=== PATIENT | male | born 1950 | race Caucasian/White ===

== ENCOUNTER 2017-04-01 22:14 | Emergency (ER) | payer OTHER ==
--- NOTE | 2017-04-01 23:06 | DIAGNOSTIC IMAGING REPORT ---
PROCEDURE: CT HEAD WITHOUT CONTRAST INDICATION: DIZZINESS TECHNIQUE: Noncontrast axial images with sagittal and coronal reformations. COMPARISON: None. FINDINGS: Sulci and ventricular system are normal. Minor white matter chronic ischemic changes. No evidence of acute intracranial process. Visualized mastoids and sinuses are clear. IMPRESSION: 1. No acute intracranial abnormality 2. Minor white matter chronic ischemic changes 3. Findings discussed with Dr. Alvarado at 11:05 p.m., [place] Standard Time
--- NOTE | 2017-04-01 23:57 | ED CLINICAL REPORT ---
Clinical Report - Physicians/Mid Levels [facility] [address] [place] [address] 04/01/2017 22:16 Patient: KEENAN BATES Time Seen: 22:30. Arrived- By private vehicle. Historian- patient and spouse. HISTORY OF PRESENT ILLNESS Chief Complaint: Dizzy spell. It is gone now. This started about 1 hour ago and is now gone. It was abrupt in onset and has been intermittent. Onset during moderate exertion. No neck pain. Not located in the facial region. At its maximum, severity described as moderate. When seen in the E.D., it was gone. Modifying factors: relieved by nothing. Not worsened by anything. No blurred vision, photophobia, associated nausea, numbness or weakness. No vomiting. 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 Similar symptoms previously: (several years ago). ( Had work up at his PCP's office - reportedly negative). Recent medical care: Not recently seen/assessed. REVIEW OF SYSTEMS No fever, sinus pressure, ear pain, sore throat or chest pain. No difficulty breathing, cough, abdominal pain, pain with urination or skin rash. No back pain or headache. All systems otherwise negative, except as recorded above. PAST HISTORY PCP: [facility]. Hypertension. Medications: Lisinopril Oral 40 mg, daily as needed. Allergies: No Known Drug Allergy. SOCIAL HISTORY Smoker- current status unknown. Occasional alcohol use. No drug use. Residence: [place]. ADDITIONAL NOTES The nursing notes have been reviewed. PHYSICAL EXAM Vital Signs: 04/01/2017 22:29 BP: 181/91. HR: 60. RR: 18. O2 saturation: 100%. Temp: 98.1 F. Pain level now: 0/10. Appearance: Alert. No acute distress. Head: No temporal artery tenderness. Eyes: Pupils equal, round and reactive to light. Eyes normal inspection. ENT: Nose normal. Pharynx normal. No pharyngeal erythema or tonsillar exudate. Neck: Normal inspection. Neck supple. No meningeal signs or carotid bruit. CVS: Bradycardia (ventricular rate = 55). Heart sounds normal. Pulses normal. Respiratory: No respiratory distress. Breath sounds normal. Abdomen: Soft and nontender. Back: Normal inspection. Skin: Skin warm and dry. Normal skin color. No rash. Normal skin turgor. Extremities: Extremities exhibit normal ROM. No calf tenderness. No lower extremity edema. Neuro: Oriented X 3. Alert. Mood/affect normal. Speech normal. Cranial nerves normal (as tested). No cerebellar findings. No motor deficit. No sensory deficit. Reflexes normal. Reflex exam: right biceps 2+, left biceps 2+, right patellar 2+, left patellar 2+, right Achilles 1+ and left Achilles 1+. LABS, X-RAYS, AND EKG EKG: EKG time: (22:43). Normal sinus rhythm. Rate: 60. Normal P waves. Normal PEARL. Normal QRS complex. Normal axis. Normal ST and T waves. The study has been interpreted contemporaneously by me. The EKG appears to be a good tracing. Rhythm Strip #1: Normal sinus rhythm. Regular rhythm. Narrow QRS complexes. No ectopy. CT Head: Normal study. No acute changes. No bony abnormalities, no hemorrhage, no intracranial mass, no midline shift and no hydrocephalus. Head CT performed without contrast. The study was independently viewed by me, interpreted by the radiologist and discussed with the radiologist. Duplex Ultrasound: Right and left carotid study. (5-15% bilateral stenosis - not hemodynamically significant). The exam was performed by a semiconductor lab technician. The study was independently viewed by me and interpreted by the radiologist. The study was discussed with the radiologist (via [employer]). Laboratory Tests: UA-Culture if indicated: (ARNOL: 04/01/2017 23:50) ( MsgRcvd 04/02/2017 00:18) Final results Test Result Flag Units (Reference) URINE COLOR YELLOW URINE APPEARANCE CLEAR URINE GLUCOSE NEGATIVE (NEGATIVE) URINE BILIRUBIN NEGATIVE (NEGATIVE) URINE KETONE NEGATIVE (NEGATIVE) URINE SPECIFIC GRAVITY <= 1.005 L (1.010-1.030) URINE PH 6.0 (5.0-8.0) URINE PROTEIN NEGATIVE (NEGATIVE) URINE UROBILINOGEN 0.2 EU/dL (0.2-1.0) URINE NITRITE NEGATIVE (NEGATIVE) URINE BLOOD NEGATIVE (NEGATIVE) URINE LEUK ESTERASE NEGATIVE (NEGATIVE) URINE RBC RARE rbc/hpf (0-1) URINE WBC NONE SEEN wbc/hpf (0-1) URINE EPITHELIAL CELLS NONE SEEN EPI/hpf (0-5) URINE BACTERIA NONE SEEN (NONE SEEN) URINE COMMENT CULT NOT INDICATED URINE CULTURES ARE SET-UP BASED ON THE FOLLOWING CRITERIA:POSITIVE NITRITEPOSITIVE LEUKOCYTE ESTERASEGREATER THAN 10 WHITE BLOOD CELLSMODERATE (2+) OR GREATER BACTERIA CBC w Diff: (ARNOL: 04/01/2017 22:40) ( [facility] 04/01/2017 22:57) Final results Test Result Flag Units (Reference) WHITE BLOOD COUNT 4.9 K/uL (4.5-11.5) RED BLOOD COUNT 4.43 L M/uL (4.50-5.90) HEMOGLOBIN 13.2 L gm/dL (13.5-17.5) HEMATOCRIT 39.4 L % (41.0-53.0) MEAN CELL VOLUME 89 fL (80-100) MEAN CORPUSCULAR HGB 30 pg (26-34) MEAN CORPUSCULAR HGB CONC 34 g/dL (31-37) RED CELL DISTRIBUTION WIDTH 13.1 % (11.6-14.8) PLATELET COUNT 196 K/uL (150-400) LYMPH % 32.9 % (25-40) MONO % 5.1 % (3-14) GRANULOCYTE % 62.0 PT with INR: (ARNOL: 04/01/2017 22:40) ( [facility] 04/01/2017 23:10) Final results Test Result Flag Units (Reference) INR 0.9 (0.8-1.2) Low Intensity Therapy: INR 1.5-2.0 PT range 18.5-23.1Mod.Intensity Therapy: INR 2.0-3.0 PT range 23.1-31.5High Intensity Therapy: INR 2.5-3.5 PT range 27.4-35.5High Intensity Therapy 2: INR 3.0-4.0 PT range 31.5-39.3 D-DIMER QUANTITATIVE 0.30 ug/mLFEU (0.27-0.52) The primary value of this quantitative assay relates toits negative predictive value (i.e. exclusion) of pulmonaryembolism/deep vein thrombosis/DIC.Elevated levels of d-dimer may also occur with:, age, cancer, inflammation, liver disease,post-op, infection, hematoma, coronary disease, peripheralarteriopathy, bleeding disorders and thrombolytic treatment.Results should be correlated with other clinical andradiological data.Testing Methodology: Latex Immunoassay Urine Drug Screen: (ARNOL: 04/01/2017 23:50) ( [facility] 04/02/2017 00:19) Final results Test Result Flag Units (Reference) AMPHETAMINE/METHAMPHETAMINE NEGATIVE (NEGATIVE) BARBITURATE NEGATIVE (NEGATIVE) BENZODIAZEPINE NEGATIVE (NEGATIVE) CANNABINOID NEGATIVE (NEGATIVE) COCAINE NEGATIVE (NEGATIVE) ECSTASY NEGATIVE (NEGATIVE) METHADONE NEGATIVE (NEGATIVE) OPIATE NEGATIVE (NEGATIVE) The urine drug screen is a qualitative screening test fordrug overdose and abuse. All screen results should beconsidered as presumptive.Drugs screened for are as follows:BenzodiazepinesCocaineAmphetamines/MetamphetaminesTHC (Tetrahydrocannabinol)OpiatesBarbituratesEcstasyMethadonePositive results are unconfirmed. For confirmation, notifythe lab for the specimen to be sent to the reference lab.All confirmations must be performed by a differentmethodology.The ingestion of natural herbal and plant productscontaining Ephedra/Ephedra metabolites can produce in urineone or more substances capable of cross reacting withamphetamine/methamphetamine immunoassays. These testsprovide a preliminary result only. A more specificalternative chemical method must be used to obtain aconfirmed analytical result. BNP: (ARNOL: 04/01/2017 22:40) ( [facility]12) Final results Test Result Flag Units (Reference) B-TYPE NATRIURETIC PEPTIDE 57.5 pg/ml (5-100) Amylase: (ARNOL: 04/01/2017 22:40) ( [facility] 04/01/2017 23:28) Final results Test Result Flag Units (Reference) AMYLASE 37 U/L (25-115) THYROID STIMULATING HORMONE 1.801 uIU/mL (0.30-3.74) CHEM 13 PANEL: (ARNOL: 04/01/2017 22:40) ( MsgRcvd 04/01/2017 23:17) Final results Test Result Flag Units (Reference) GLUCOSE 81 mg/dL (70-110) BUN 11 mg/dL (7-18) CREATININE 0.9 mg/dL (0.6-1.3) Estimated GFR >60 mL/min Estimated GFR- >60 mL/min Note: Persistent reduction over 3 months in eGFR<60 mL/min/1.73 m2 defines CKD. Patients with eGFR values>=60 mL/min/1.73 m2 may also have CKD if evidence ofpersistent proteinuria. Additional information may be foundat www.kidney.org. SODIUM 141 mmol/L (136-145) POTASSIUM 3.5 mmol/L (3.5-5.1) CHLORIDE 107 mmol/L (98-107) CARBON DIOXIDE 32 mmol/L (21-32) CALCIUM 8.7 mg/dL (8.5-10.1) TOTAL PROTEIN 6.4 g/dL (6.4-8.2) ALBUMIN 3.6 g/dL (3.3-5.0) BILIRUBIN, TOTAL 0.3 mg/dL (0.0-1.0) ALKALINE PHOSPHATASE 85 U/L (46-116) AST (SGOT) 19 U/L (15-37) ALT (SGPT) 30 U/L (12-78) CPK 123 U/L (24-260) MAGNESIUM 1.8 mg/dL (1.8-2.4) TROPONIN I <0.05 ng/mL (0.00-1.5) TROPONIN REFERENCE RANGE:<0.1 NEGATIVE0.1-1.5 INDETERMINANT>1.5 POSITIVE . Pulse Oximetry: 04/01/2017 22:29 O2 saturation: 100%. (FIO2 - room air). Interpretation: normal. PROGRESS AND PROCEDURES Course of Care: Normal Saline 1 liter IVPB given. [place] bradycardia and taking antihypertensives - had slept and then quickly began working / moving around his truck. May have mild dehydration and orthostatic hypotension (transient). No signs of dysrhythmia or ACS or intracranial pathology. Patient/family counseled. Disposition: Discharged. Condition: stable and improved. CLINICAL IMPRESSION Near syncope .12 lead EKG performed. Mild anemia. INSTRUCTIONS No driving for 3. ( Please do not drive if you have any symptoms of lightheadedness). Rest. Do not work for three days. Drink plenty of fluids. Warnings: Further evaluation is necessary. It is very important to follow up with a physician. GENERAL WARNINGS: Return or contact your physician immediately if your condition worsens or changes unexpectedly, if not improving as expected, or if other problems arise. Your Current Medications: CONTINUE TAKING THE FOLLOWING MEDICATIONS: Lisinopril Oral : 40 mg daily, prn. OTC Medications: Take aspirin according to label instructions. Available over the counter. (daily dose = 325 mg) Follow-up: Follow up with your doctor tomorrow. (Electronically signed by Brenden Alvarado DO 04/02/2017 2:22)
--- NOTE | 2017-04-01 23:57 | ED ORDER SUMMARY ---
..... Patient: KEENAN BATES OrderSheet [facility] VisitID: [id number] [place] [address] 66y, M Registration Date/Time: 04/01/2017 ORDER SHEET Weight: 83.9 kg (stated) Allergies: No Known Drug Allergy GENERAL ORDERS: CT Head wo Cont Urgent (22:42 04/01/2017 PHutchinson DO) (Ack 22:47 AMcQuoid ER Tech1) (23:01 Josh) Shell Trim Operator (Continuous) (22:42 04/01/2017 PHutchinson DO) (22:45 HSoule) (Ack 22:47 AMcQuoid ER Tech1) US Carotid Doppler Bilat Urgent (22:43 04/01/2017 PHutchinson DO) (Ack 22:47 AMcQuoid ER Tech1) (23:35 RFay) UA-Culture if indicated Urgent (22:43 04/01/2017 PHutchinson DO) (Ack 22:47 AMcQuoid ER Tech1) (0:01 Alta R.N.) Cardiac Panel Stat (22:43 04/01/2017 PHutchinson DO) (Ack 22:47 AMcQuoid ER Tech1) (22:52 ALawrence ER Tech1) BNP Urgent (22:43 04/01/2017 PHutchinson DO) (Ack 22:47 AMcQuoid ER Tech1) (22:52 ALawrence ER Tech1) D-Dimer Urgent (22:43 04/01/2017 PHutchinson DO) (Ack 22:47 AMcQuoid ER Tech1) (22:52 ALawrence ER Tech1) Amylase Urgent (22:43 04/01/2017 PHutchinson DO) (Ack 22:47 AMcQuoid ER Tech1) (22:52 ALawrence ER Tech1) PT with INR Urgent (22:43 04/01/2017 PHutchinson DO) (Ack 22:47 AMcQuoid ER Tech1) (22:52 ALawrence ER Tech1) TSH Urgent (22:43 04/01/2017 PHutchinson DO) (Ack 22:47 AMcQuoid ER Tech1) (22:52 ALawrence ER Tech1) Urine Drug Screen Urgent (22:43 04/01/2017 [facility]) (Ack 22:47 AMcQuoid ER Tech1) (0:01 KPage-Kuchan R.N.) Pulse oximeter (22:43 04/01/2017 [facility]) (22:45 HSoule) (Ack 22:47 AMcQuoid ER Tech1) EKG - ER Stat (22:43 04/01/2017 [facility]) (22:45 HSoule) (Ack 22:47 AMcQuoid ER Tech1) Vitals (22:43 04/01/2017 [facility]) (22:45 HSoule) (Ack 22:47 AMcQuoid ER Tech1) MEDICATION ORDERS: IV FLUIDS: IV NS : initial bolus 1000 mL (1000 mL/hr), then 250 mL/hr for X4 (NOW) (22:42 04/01/2017 [facility]) (Ack 22:45 HSoule) (0:01 KPage-Kuchan R.N.) Zofran IV 4 mg (NOW) (22:43 04/01/2017 [facility]) (Ack 22:45 HSoule) (0:01 KPage-Kuchan R.N.) ORDER SHEET NOTES: [Electronically signed by Brenden Alvarado DO (02:22 04/02/2017)] [Electronically signed by Ewa Ga R.N. (20:40 04/02/2017)] [Electronically locked/signed by Ewa Ga R.N. (20:40 04/02/2017)]
--- NOTE | 2017-04-01 23:57 | ED NURSING NOTES ---
Clinical Report - Nurses [facility] [address] [place] [address] 04/01/2017 22:16 Patient: KEENAN BATES TRIAGE Triage time 22:30 Apr 01 2017. Acuity: LEVEL 3. Chief Complaint: DIZZINESS. ( FAST exam negative). SEPSIS SCREEN: Sepsis Screen: negative. Negative (no infection suspected/documented). CASA COMA SCORE: Casa Coma Scale: 15- eyes open spontaneously (4); best verbal response- oriented x 4 (5); best motor response- obeys commands (6). --22:35 Yesi Blackburn 22:29 04/01/17. BP: 181/91. HR: 60. RR: 18. O2 saturation: 100%. Temp: 98.1 F (oral). Pain level now: 0/10. --22:35 Yesi Blackburn. Weight: 83.9 kg stated. Height/Length: 72 inches Per Patient. BMI: 25.1. --22:32 Yesi Blackburn. Medications Lisinopril Oral 40 mg, daily as needed. --22:31 Yesi Blackburn. Medication/allergy information source: the patient. --22:35 Yesi Blackburn. Allergies No Known Drug Allergy. --22:32 Yesi Blackburn. History Arrived by private vehicle. Historian: patient. Accompanied by family. This started just prior to arrival. 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 He reports he was getting into his truck when he was suddenly "dizzy". He reports it was almost as if he would pass out. He reports the "dizzy" spell was on his right side. He reports he feels "weird". He reports the onset about 45 min ago.). PAST MEDICAL HX: Immunizations: up-to-date. SOCIAL HX: Heavy tobacco smoker (cigarette)- 1 pack per day. Occasional alcohol use. No drug use. No infectious disease exposure. ABUSE ASSESSMENT: No report of abuse. FALL RISK ASSESSMENT: Fall risk assessment completed. No fall risk identified. NUTRITIONAL RISK ASSESSMENT: The nutritional risk assessment revealed no deficiencies. FUNCTIONAL ASSESSMENT: Functional assessment: no impairments noted. LEARNING NEEDS ASSESSMENT: The learning needs assessment revealed no barriers. SKIN INTEGRITY ASSESSMENT: Skin integrity risk assessment completed. No skin integrity risk identified. --22:35 Yesi Blackburn. PROBLEMS: Hypertension. --22:32 Yesi Blackburn. ADDITIONAL SURGERIES: Right knee . --22:32 Yesi Blackburn. Interventions ID band on patient. To treatment room. --22:35 Yesi Blackburn. PHYSICAL ASSESSMENT Ambulatory to room. Patient gowned. GENERAL / NEURO / PSYCH: Alert. Oriented X 4. Appears in no acute distress. HEENT: No facial asymmetry noted. Mucous membranes are pink. RESPIRATORY: Respirations not labored. CVS: Normal sinus rhythm noted. GI / : Abdomen soft and nontender. SKIN: Skin is warm and dry. --22:36 Yesi Blackburn. NURSING PROGRESS NOTES wildlife conservation officer, pulse oximeter and NIBP monitor placed on patient; monitor alarms on. Patient gowned. Reassurance given to the patient. Two patient identifiers checked. Call light placed in reach. Side rails up x 1. Bed placed in lowest position. Brakes of bed on. Patient ready for evaluation- chart flagged and ED physician notified. --22:36 Yesi Blackburn EKG time: (22:42 Apr 01 2017). EKG was performed by a nurse and shown to the ED physician. --22:45 Yesi Blackburn 22:45 04/01/2017 Site #1 started via IV in the left antecubital space with an 20g angiocath, with aseptic technique and good blood return; one attempt. Blood drawn: rainbow set. Labeled in the presence of the patient and sent to the lab. Saline lock flushed with 10 mL saline. --22:45 Yesi Blackburn Patient transported to CT by stretcher with tech. (22:53 Apr 01 2017). --22:53 Yesi Blackburn Telemetry strip posted to chart. --22:55 McQuoid, Verna, ER Tech1 23:46 04/01/2017 Started bag #1 1000 mL IV Fluids IV NS (Saline); at 1000 mL/hr via site #1. Allergies verified and confirmed 5 rights. IV patency established. IV site checked: no pain, redness, or swelling. IV flushed thoroughly pre- and post-medication administration. --00:01 Ewa Ga R.N. 23:46 04/01/2017 Zofran (Ondansetron HCl) IVP 4 mg given. via site #1. Allergies verified and confirmed 5 rights. IV patency established. IV site checked: no pain, redness, or swelling. IV flushed thoroughly pre- and post-medication administration. IVP given by RN. --00:01 Ewa Ga R.N. Patient ID band checked for patient name: patient confirmed urine collected with return of yellow-colored urine; sample sent to lab for urinalysis. Specimen labeled in the presence of the patient. --00:02 Ewa Ga R.N. Patient waiting for lab results. --00:02 Ewa Ga R.N. 00:04 04/02/17. BP: 133/80. HR: 47. RR: 17. Pain level now: 0/10. --00:04 Ewa Ga R.N. 00:04 04/02/17. BP: 133/80. HR: 47. RR: 17. Pain level now: 0/10. 23:34 04/01/17. BP: 147/68. HR: 56. RR: 17. O2 saturation: 100%. Pain level now: 0/10. 22:29 04/01/17. BP: 181/91. HR: 60. RR: 18. O2 saturation: 100%. Temp: 98.1 F (oral). Pain level now: 0/10. --00:08 Ewa Ga R.N. ( MD notified pts hr on monitor will go down to 47-49, SB, pt while speaking with him and watching the monitor denies being dizzy, sob or any/all pain). --00:08 Ewa Ga R.N. 00:47 04/02/2017 IV Fluids IV NS Discontinued: bag #1. Total amount infused: 1000 mL. IV patency established. IV site checked: no pain, redness, or swelling. IV flushed thoroughly. --00:57 Ewa Ga R.N. 00:47 04/02/2017 Zofran IVP Response: no adverse reaction symptoms have improved the patient feels better. --00:57 Ewa Ga R.N. DISPOSITION / DISCHARGE 00:57 04/02/2017 Site #1 removed upon discharge. Bandaid applied. --00:57 Ewa Ga R.N. No learning barriers present. Discharge instructions provided and reviewed with the patient and spouse. Activity restrictions reviewed (note given per MD). Work note given. Patient and spouse verbalized understanding. Written instructions provided in Chinese. The patient was discharged by the physician. He was discharged home and accompanied by spouse. He left the Emergency Department ambulatory and via private vehicle. Spouse driving. ( pt given rx and f/u, pt enc to drink fluids and f/u as directed). --01:13 Ewa Ga R.N. 00:57 04/02/17. BP: 134/74. HR: 61. RR: 15. O2 saturation: 100%. Temp: deferred. Pain level now: 0/10. --01:13 Ewa Ga R.N. Locked/Released at 04/02/2017 20:40 by Ewa Ga R.N.
--- NOTE | 2017-04-01 23:57 | ED ORDER SUMMARY ---
..... Patient: KEENAN BATES OrderSheet [facility] VisitID: [id number] [place] [address] 66y, M Registration Date/Time: 04/01/2017 ORDER SHEET Weight: 83.9 kg (stated) Allergies: No Known Drug Allergy GENERAL ORDERS: CT Head wo Cont Urgent (22:42 04/01/2017 PHutchinson DO) (Ack 22:47 AMcQuoid ER Tech1) (23:01 Josh) Dairy Farm Manager (Continuous) (22:42 04/01/2017 PHutchinson DO) (22:45 HSoule) (Ack 22:47 AMcQuoid ER Tech1) US Carotid Doppler Bilat Urgent (22:43 04/01/2017 PHutchinson DO) (Ack 22:47 AMcQuoid ER Tech1) (23:35 RFay) UA-Culture if indicated Urgent (22:43 04/01/2017 PHutchinson DO) (Ack 22:47 AMcQuoid ER Tech1) (0:01 Alta R.N.) Cardiac Panel Stat (22:43 04/01/2017 PHutchinson DO) (Ack 22:47 AMcQuoid ER Tech1) (22:52 ALawrence ER Tech1) BNP Urgent (22:43 04/01/2017 PHutchinson DO) (Ack 22:47 AMcQuoid ER Tech1) (22:52 ALawrence ER Tech1) D-Dimer Urgent (22:43 04/01/2017 PHutchinson DO) (Ack 22:47 AMcQuoid ER Tech1) (22:52 ALawrence ER Tech1) Amylase Urgent (22:43 04/01/2017 PHutchinson DO) (Ack 22:47 AMcQuoid ER Tech1) (22:52 ALawrence ER Tech1) PT with INR Urgent (22:43 04/01/2017 PHutchinson DO) (Ack 22:47 AMcQuoid ER Tech1) (22:52 ALawrence ER Tech1) TSH Urgent (22:43 04/01/2017 PHutchinson DO) (Ack 22:47 AMcQuoid ER Tech1) (22:52 ALawrence ER Tech1) Urine Drug Screen Urgent (22:43 04/01/2017 [facility]) (Ack 22:47 AMcQuoid ER Tech1) (0:01 KPage-Kuchan R.N.) Pulse oximeter (22:43 04/01/2017 [facility]) (22:45 HSoule) (Ack 22:47 AMcQuoid ER Tech1) EKG - ER Stat (22:43 04/01/2017 [facility]) (22:45 HSoule) (Ack 22:47 AMcQuoid ER Tech1) Vitals (22:43 04/01/2017 [facility]) (22:45 HSoule) (Ack 22:47 AMcQuoid ER Tech1) MEDICATION ORDERS: IV FLUIDS: IV NS : initial bolus 1000 mL (1000 mL/hr), then 250 mL/hr for X4 (NOW) (22:42 04/01/2017 [facility]) (Ack 22:45 HSoule) (0:01 KPage-Kuchan R.N.) Zofran IV 4 mg (NOW) (22:43 04/01/2017 [facility]) (Ack 22:45 HSoule) (0:01 KPage-Kuchan R.N.) ORDER SHEET NOTES: [Electronically signed by Brenden Alvarado DO (02:22 04/02/2017)] [Electronically signed by Ewa Ga R.N. (20:40 04/02/2017)] [Electronically locked/signed by Ewa Ga R.N. (20:40 04/02/2017)]
--- NOTE | 2017-04-01 23:58 | DIAGNOSTIC IMAGING REPORT ---
PROCEDURE: US BILATERAL CAROTID DOPPLER INDICATION: DIZZINESS TECHNIQUE: Color Doppler duplex imaging of the carotid and vertebral vessels. COMPARISON: None. FINDINGS: Right common carotid artery peak systolic velocity 81 cm/second. Right internal carotid artery peak systolic velocity 95 cm/second. Right external carotid artery peak systolic velocity 77 cm/second. Right krwlqrvy-de-tfjvao carotid artery ratio 1.2 Right vertebral artery peak systolic velocity 49 cm/second antegrade. Left common carotid artery peak systolic velocity 67 cm/second. Left internal carotid artery peak systolic velocity 113 cm/second. Left external carotid artery peak systolic velocity 74 cm/second. Left fokjannd-xb-cszmfj carotid artery ratio 1.7 Left vertebral artery peak systolic velocity 28 cm/second antegrade. IMPRESSION: 1. Mild atheromatous plaque of the carotid bifurcations. 2. Mild bilateral 5-15% internal carotid artery stenoses. 3. No evidence of significant stenosis. Velocity criteria are extrapolated from diameter data as defined by the Society of Radiologists in Ultrasound Consensus Conference, Radiology 2003; 229; 340-346.
--- NOTE | 2017-04-01 23:58 | DIAGNOSTIC IMAGING REPORT ---
PROCEDURE: US BILATERAL CAROTID DOPPLER INDICATION: DIZZINESS TECHNIQUE: Color Doppler duplex imaging of the carotid and vertebral vessels. COMPARISON: None. FINDINGS: Right common carotid artery peak systolic velocity 81 cm/second. Right internal carotid artery peak systolic velocity 95 cm/second. Right external carotid artery peak systolic velocity 77 cm/second. Right vnszxulg-dn-xujamv carotid artery ratio 1.2 Right vertebral artery peak systolic velocity 49 cm/second antegrade. Left common carotid artery peak systolic velocity 67 cm/second. Left internal carotid artery peak systolic velocity 113 cm/second. Left external carotid artery peak systolic velocity 74 cm/second. Left xouhpfuk-re-obdsvd carotid artery ratio 1.7 Left vertebral artery peak systolic velocity 28 cm/second antegrade. IMPRESSION: 1. Mild atheromatous plaque of the carotid bifurcations. 2. Mild bilateral 5-15% internal carotid artery stenoses. 3. No evidence of significant stenosis. Velocity criteria are extrapolated from diameter data as defined by the Society of Radiologists in Ultrasound Consensus Conference, Radiology 2003; 229; 340-346.
--- NOTE | 2017-04-02 20:40 | ED MAR SUMMARY ---
..... Medication Administration Record [facility] [address] [place] [address] Patient: KEENAN BATES Visit ID: [id number] 66y, M Weight: 83.9 kg Height/Length: 72 in BMI: 25.1 ALLERGIES: No Known Drug Allergy Start 23:46 04/01/2017 [place] R.N., Stop 00:47 04/02/2017 [place] R.N. Medication Administered: IV NS (SALINE), Dose: IV Fluids, Rate: 1000 mL/hr, Dispensed: 1000 mL bag, Site: #1 left AC. Medication Ordered: IV NS : initial bolus 1000 mL (1000 mL/hr), then 250 mL/hr for X4 (NOW). Given 23:46 04/01/2017 [place] R.N. Medication Administered: ZOFRAN [IVP] (ONDANSETRON HCL), Dose: 4 mg IVP, Site: #1 left AC. Medication Ordered: Zofran IV 4 mg (NOW).
--- NOTE | 2017-04-02 20:40 | ED DISCHARGE INSTRUCTIONS ---
Patient: KEENAN BTAES General Instructions [facility] VisitID: [id number] [place] [address] 66y, M Registration Date/Time: 04/01/2017 Near syncope .12 lead EKG performed. Mild anemia. INSTRUCTIONS No driving for 3. ( Please do not drive if you have any symptoms of lightheadedness). Rest. Do not work for three days. Drink plenty of fluids. Warnings: Further evaluation is necessary. It is very important to follow up with a physician. GENERAL WARNINGS: Return or contact your physician immediately if your condition worsens or changes unexpectedly, if not improving as expected, or if other problems arise. Your Current Medications: CONTINUE TAKING THE FOLLOWING MEDICATIONS: Lisinopril Oral : 40 mg daily, prn. OTC Medications: Take aspirin according to label instructions. Available over the counter. (daily dose = 325 mg) Follow-up: Follow up with your doctor tomorrow. ADDITIONAL INFORMATION Anemia [Type Not Specified, Adult] Red blood cells carry oxygen to the tissues of the body. Anemia is a condition where the size or number of red blood cells in the body is reduced. Iron is needed to make red blood cells. The most common cause of anemia is iron deficiency. This may be due to: i) Blood loss (heavy menstrual periods or bleeding from the stomach or intestines); or, ii) Not eating enough iron-containing foods. Other causes of anemia include certain vitamin deficiencies, chronic kidney disease or certain other chronic illnesses. Anemia causes a feeling of being tired and run down. When anemia becomes severe, the skin becomes pale and there is shortness of breath with exertion. Headaches, dizziness, leg cramps with exertion, drowsiness and fatigue are other common symptoms. Home Care: If you are having symptoms of anemia listed above: -- Do not overexert yourself. -- Talk to your doctor before flying on an airplane or traveling to high altitudes. Follow Up with your doctor as advised by our staff. Additional blood testing may be required to determine the exact cause of your anemia. If testing was done on this visit, it may take several days to get all of the results. You may call this facility or follow up with your own doctor to get the results. Get Prompt Medical Attention if any of the following occur: -- Shortness of breath or chest pain -- Worsening of dizziness, fainting -- Vomiting blood or passing red or black-colored stool Near-Fainting:Uncertain Cause Fainting (syncope) is a temporary loss of consciousness ("passing out"). It occurs when blood flow to the brain is reduced. Near-fainting ("near-syncope") is like fainting, but you do not fully "pass out." The common minor causes of near fainting include sudden fear, pain, emotional stress, overexertion, or quickly standing up after sitting or lying for a long time. The more serious causes for near fainting are due to either a very slow or very fast heart beat, dehydration, anemia, blood loss, problems related to the heart, or taking too much high blood pressure medicine. The exact cause of your episode is not certain. More tests may be required. Therefore, it is important that you follow up with your doctor as advised. Home Care: 1) Rest today. Resume your normal activities as soon as you are feeling back to normal. 2) If you become light-headed or dizzy, lie down right away or sit with your head between your knees. 3) Because we do not know the exact cause of your near fainting spell, another spell could occur without warning. Therefore, do not drive a car or use dangerous equipment. D o not take a bath alone (use a shower instead). Do not swim alone. You can resume these activities when your doctor says that you are no longer in danger of having a near fainting spell. 4) Stay well hydrated by drinking enough fluid each day. Follow Up with your doctor as instructed. Get Prompt Medical Attention if any of the following occur: -- Another fainting spell occurs, and it is not explained by the common causes listed above -- Chest, arm, neck, jaw, back or abdominal pain -- Shortness of breath -- Weakness, tingling or numbness in one side of the face, one arm or leg -- Slurred speech, confusion, trouble walking or seeing -- Seizure -- Blood in vomit, stools (black or red color) -- (In women) unexpected vaginal bleeding You have been given the following additional information: Anemia, Type Not Specified (Adult) Near Syncope, Unknown No driving for 3. ( Please do not drive if you have any symptoms of lightheadedness). Rest. Do not work for three days. (Electronically signed by Brenden Alvarado DO 04/02/2017 2:22)
--- NOTE | 2017-04-02 20:40 | ED MAR SUMMARY ---
..... Medication Administration Record [facility] [address] [place] [address] Patient: KEENAN BATES Visit ID: [id number] 66y, M Weight: 83.9 kg Height/Length: 72 in BMI: 25.1 ALLERGIES: No Known Drug Allergy Start 23:46 04/01/2017 [place] R.N., Stop 00:47 04/02/2017 [place] R.N. Medication Administered: IV NS (SALINE), Dose: IV Fluids, Rate: 1000 mL/hr, Dispensed: 1000 mL bag, Site: #1 left AC. Medication Ordered: IV NS : initial bolus 1000 mL (1000 mL/hr), then 250 mL/hr for X4 (NOW). Given 23:46 04/01/2017 [place] R.N. Medication Administered: ZOFRAN [IVP] (ONDANSETRON HCL), Dose: 4 mg IVP, Site: #1 left AC. Medication Ordered: Zofran IV 4 mg (NOW).
--- NOTE | 2017-04-02 20:40 | ED MED RECONCILIATION SUMMARY ---
Patient: KEENAN BATES Medication Reconciliation Report [facility] VisitID: [id number] [address] [place] [address] 66y, M Registration Date/Time: 04/01/2017 Weight: 83.9 kg Height/Length: 72 in. BMI: 25.1 ALLERGIES: No Known Drug Allergy The patient's Home Medications are listed below: CONTINUE TAKING THE FOLLOWING MEDICATIONS: Lisinopril Oral 40 mg, daily The source(s) of the original Home Medication information: patient The following Medications were given to the patient in the Emergency Department: IV NS IV Fluids bolus 0, then 1000 mL/hr, administered: 04/01/2017 11:46:00 PM Zofran [IVP] IVP 4 mg, administered: 04/01/2017 11:46:00 PM The following Medications were prescribed to the patient: Take aspirin according to label instructions. Available over the counter.(daily dose = 325 mg) -- Brenden Alvarado DO
--- NOTE | 2017-04-02 20:40 | ED MED RECONCILIATION SUMMARY ---
Patient: KEENAN BATES Medication Reconciliation Report [facility] VisitID: [id number] [address] [place] [address] 66y, M Registration Date/Time: 04/01/2017 Weight: 83.9 kg Height/Length: 72 in. BMI: 25.1 ALLERGIES: No Known Drug Allergy The patient's Home Medications are listed below: CONTINUE TAKING THE FOLLOWING MEDICATIONS: Lisinopril Oral 40 mg, daily The source(s) of the original Home Medication information: patient The following Medications were given to the patient in the Emergency Department: IV NS IV Fluids bolus 0, then 1000 mL/hr, administered: 04/01/2017 11:46:00 PM Zofran [IVP] IVP 4 mg, administered: 04/01/2017 11:46:00 PM The following Medications were prescribed to the patient: Take aspirin according to label instructions. Available over the counter.(daily dose = 325 mg) -- Brenden Alvarado DO
== END 2017-04-02 01:09 | disposition home or self-care (01) ==
LOC: ED SRH 22:14
DX: R55 Syncope and collapse (principal); D64.9 Anemia, unspecified; I10 Essential (primary) hypertension; F17.210 Nicotine dependence, cigarettes, uncomplicated; Z79.899 Other long term (current) drug therapy
CPT/HCPCS: 90004; 90100; 90616; 91320; 91556; 92530; 92610; 92720; 92760; 92761; 92762; 92763; 92764; 92765; 92766; 92767; 93140; 94060; 95059